=== PATIENT | male | born 1965 | race Hispanic/Latino ===

== ENCOUNTER → 2017-06-06 | Outpatient (CLI) | payer BC | END | disposition home or self-care (01) | LOC: GMAJ 16:27 | PROVIDERS: ATTEND Family Medicine | DX: K21.9 Gastro-esophageal reflux disease without esophagitis (principal) ==

== ENCOUNTER → 2017-06-19 | Outpatient (CLI) | payer BC | END | disposition home or self-care (01) | LOC: LAB.O 16:55 | PROVIDERS: ATTEND Physician Assistant | DX: R19.7 Diarrhea, unspecified (principal) ==

== ENCOUNTER → 2017-12-25 | Outpatient (CLI) | payer BC | LOC: GMAJS 14:49 | PROVIDERS: ATTEND Physician Assistant | DX: R53.83 Other fatigue (principal) ==

== ENCOUNTER → 2019-03-25 | Outpatient (CLI) | payer BC | LOC: GMAJ 10:24 | PROVIDERS: ATTEND Family Medicine | DX: E05.90 Thyrotoxicosis, unspecified without thyrotoxic crisis or storm (principal); I10 Essential (primary) hypertension; E78.2 Mixed hyperlipidemia ==

== ENCOUNTER → 2019-10-07 | Outpatient (CLI) | payer BC | LOC: GMAJ 10:46 | PROVIDERS: ATTEND Family Medicine | DX: Z12.5 Encounter for screening for malignant neoplasm of prostate (principal); I10 Essential (primary) hypertension; E78.00 Pure hypercholesterolemia, unspecified ==

== ENCOUNTER → 2020-11-30 | Outpatient (CLI) | payer BC | LOC: GMAJ 12:13 | PROVIDERS: ATTEND Family Medicine | DX: Z12.5 Encounter for screening for malignant neoplasm of prostate (principal) ==